=== PATIENT | female | born 1950 | race Caucasian/White ===

== ENCOUNTER → 2017-03-25 | Outpatient (CLI) | payer MEDICARE, BC ==
[~2017-03-25] MED LIST: ACETAMINOPHEN PO; ALLEGRA D PO; ALLEGRA-D1 TAB.SR1 PO; ASACOL400 MG PO; ASTELIN137 MCG INH; ATARAX PO; CALTRATE 600+D PO; CARAFATE1 GM PO; CELEBREX PO; CLARINEX-D1 TAB.SR . PO; COLAZAL750 MG PO; COUMADIN6 MG PO; FOLIC ACID PO; FOLIC ACID1 MG PO; HYDROCODON-ACE1 EAC7 PO; INFLECTRA100 MG IV; KCL PO; MAXZIDE 75/50 T1 TAB PO; MEDROL PO; MEGA BIOTIN10000 MCG PO; METHOTREXATE2.5 MG PO; MICRO-K PO; MULTI-VITAMIN1 TAB PO; MULTIVITAMIN1 UDCAP PO; NEXIUM PO; NORVASC PO; PANTOPRAZOLE SO40 MG PO; PRAVACHOL PO; PRAVASTATIN SOD40 MG PO; PREVACID PO; REGLAN PO; REMICADE INJ; REMICADE IV; SINGULAIR PO; VIT E PO; VITAMIN C PO; VITAMIN D 4001 UDTAB PO; VITAMIN D1000 UNI2 PO; ZEGERID PO; ZEGERID40 MG/PKT PO; ZEGRID PO; ZESTRIL40 MG PO; ZETIA PO; ZOLOFT PO; ZOLOFT100 MG PO; [UNRECOGNIZED DRUG - OTHER] PO; [UNRECOGNIZED DRUG - OTHER] PO; [UNRECOGNIZED DRUG - REMARK]
--- NOTE | ~2017-03-25 | CT4 ---
[facility] A Service of [facility] RADIOLOGY TEXT RESULTS PATIENT: GERRI FRIAS LOCATION: [facility] : 46 UNIT #: [id number] AGE: [address]: Amaury Chery MD SEX: F ORDER DR: [id number] [facility] [address] [place], [place] [address] [id number] O MR#: [id number] [facility] #: [id number] NAME: GERRI FRIAS : 1950 SEX: F STUDY DATE/TIME: 03/25/2017 7:53 UNIT: [facility] ROOM: STUDY DESCRIPTION: CT Abd and Pelv Wo Cont Attending Physician: Amaury Chery M.D. Referring Physician: Amaury Chery M.D. Ordering Physician: Amaury Chery M.D. Primary Care Physician: Amaury Chery M.D. MEDICAL IMAGING REPORT This report is preliminary unless electronic signature is present EXAM CT abdomen and pelvis without contrast, 03/23/2017. HISTORY 67-year-old female with mid abdominal pain, nausea, and vomiting for 2 weeks. Previous cholecystectomy, hiatal hernia. COMPARISON No previous CT abdomen and pelvis at this institution for comparison. PROCEDURE 5-mm noncontrast axial images from the lung bases through the lesser trochanters. Enteric contrast was not administered. Sagittal and coronal reformatted images were obtained. FINDINGS ABDOMEN FINDINGS: Emphysematous changes are present in the included lung bases. There is a small esophageal hiatal hernia. Cholecystectomy changes are present. Noncontrast appearance of the liver, pancreas, adrenals and kidneys is within normal limits. The spleen is markedly atrophic. Limited evaluation of bowel due to lack of enteric contrast, but no focal bowel inflammation is appreciated. The appendix is not discretely visualized, but no pericecal inflammation is seen. No pathologically enlarged lymph nodes. No ascites. [id number] calcific atherosclerosis within a nonaneurysmal abdominal aorta. PELVIS FINDINGS: Calcified uterine fibroids. Urinary bladder is decompressed. Rectum is normal. No pelvic adenopathy or free fluid. Multilevel degenerative disc and endplate changes and facet arthropathy in the lumbar spine with thoracolumbar junction dextroscoliosis, lower lumbar levoscoliosis. No acute osseous abnormalities are identified. [facility] A Service of [facility] RADIOLOGY TEXT RESULTS PATIENT: GERRI FRIAS LOCATION: [facility] : 48 UNIT #: [id number] AGE: [address]: Amaury Chery MD SEX: F ORDER DR: IMPRESSION 1. No acute abnormalities are seen within the abdomen or pelvis to explain the patient's abdominal pain. The appendix is not visualized, but no pericecal inflammation is evident. 2. Splenic atrophy. 3. Cholecystectomy. 4. Small esophageal hiatal hernia. 5. Cholecystectomy. 6. Calcified uterine fibroids. 7. Degenerative changes of the lower lumbar spine with the right lumbar scoliosis. Dictated by... Elda Majano M.D. THIS IS AN ELECTRONICALLY VERIFIED REPORT Elda Majano M.D. at 03/26/2017 8:32 AM ALIRIO/dioni TD: 03/25/2017 13:36 JOB #: [id number] MEDICAL IMAGING REPORT Page 1 of 1 COPY
== END | disposition home or self-care (01) ==
LOC: CCAT 07:14
DX: R13.10 Dysphagia, unspecified (principal); R11.2 Nausea with vomiting, unspecified; D73.0 Hyposplenism; Z90.49 Acquired absence of other specified parts of digestive tract; K44.9 Diaphragmatic hernia without obstruction or gangrene; D25.9 Leiomyoma of uterus, unspecified; M47.896 Other spondylosis, lumbar region; M41.9 Scoliosis, unspecified
CPT/HCPCS: 74176

== ENCOUNTER → 2017-04-05 | Day surgery (SDC) | payer MEDICARE, BC ==
--- NOTE | ~2017-04-05 | OR ---
Unit #: [id number] #: [id number] Patient: GERRI FRIAS [id number] [address] [address] [id number] O MR#: [id number] NAME: GERRI FRIAS ROOM: Date of Procedure: 04/05/2017 Admission Date: 04/05/2017 Surgeon: Linus Trevizo M.D. : 1950 Attending Physician: Linus Trevizo M.D. Primary Care Physician: Amaury Chery M.D. OPERATIVE REPORT PREOPERATIVE DIAGNOSES 1. Dysphagia. 2. Epigastric pain. POSTOPERATIVE DIAGNOSES 1. Diffuse gastritis. 2. Multiple gastric polyps, benign-appearing. PROCEDURES PERFORMED 1. Esophagogastroduodenoscopy with biopsy for Helicobacter pylori. 2. Excisional biopsy of gastric polyp. ANESTHESIA IV sedation. COMPLICATIONS None. INDICATIONS FOR PROCEDURE The patient is a 67-year-old, who is status post Akosua fundoplication in the distant past, who has persistent dysphagia now. She presents for EGD evaluation. DESCRIPTION OF PROCEDURE The patient was taken to the operating theater and placed in the left lateral decubitus position. IV sedation was initiated. EGD scope was passed under direct vision into the esophagus. Esophagus was grossly normal. There may have been a large gastric pouch above the Akosua wrap. There was no active inflammation. This appeared to be widely patent. The scope passed easily. There were multiple gastric polyps. These appeared to be a benign. A biopsy was taken and I excised one polyp. There was streaking gastritis mainly at the antrum. A biopsy was taken for H pylori. The duodenum was normal. I retroflexed the scope and saw intact wrap. ASSESSMENT AND PLAN We will plan for barium swallow. We will follow up on biopsy results. We will continue on her antacids. Dictated by... Linus Trevizo M.D. Unit #: [id number] #: [id number] Patient: GERRI FIRAS JNO/modl TD: 04/05/2017 18:08 JOB #: [id number] OPERATIVE REPORT Page 1 of 1 X Linus Trevizo MD PROCEDURE OPERATIVE NOTE
== END | disposition home or self-care (01) ==
LOC: COPS 13:08
DX: K29.50 Unspecified chronic gastritis without bleeding (principal); K31.7 Polyp of stomach and duodenum; K21.9 Gastro-esophageal reflux disease without esophagitis; E78.5 Hyperlipidemia, unspecified; M06.9 Rheumatoid arthritis, unspecified; E78.00 Pure hypercholesterolemia, unspecified; Z87.891 Personal history of nicotine dependence; Z79.899 Other long term (current) drug therapy; Z90.49 Acquired absence of other specified parts of digestive tract; Z96.651 Presence of right artificial knee joint; Z98.890 Other specified postprocedural states
CPT/HCPCS: 87077; 88305; 88312

== ENCOUNTER → 2017-04-12 | Outpatient (CLI) | payer MEDICARE, BC ==
--- NOTE | ~2017-04-12 | CR290 ---
[facility] A Service of [facility] RADIOLOGY TEXT RESULTS PATIENT: GERRI FRIAS LOCATION: [facility] : 48 UNIT #: [id number] AGE: [address]: Linus Trevizo MD SEX: F ORDER DR: [id number] [facility] [address] [place], [place] [address] [id number] O MR#: [id number] Acc #: [id number] NAME: GERRI FRIAS : 1950 SEX: F STUDY DATE/TIME: 04/12/2017 11:50 UNIT: [facility] ROOM: STUDY DESCRIPTION: CR UGI W Esophagus WO KUB Attending Physician: Linus Trevizo M.D. Referring Physician: Linus Trevizo M.D. Ordering Physician: Linus Trevizo M.D. Primary Care Physician: Amaury Chery M.D. MEDICAL IMAGING REPORT This report is preliminary unless electronic signature is present EXAM Upper GI series. INDICATIONS Pain and vomiting after meals for over 1 month. The fluoroscopy time is 2.4 minutes and 11 fluoroscopic images were taken. FINDINGS Evaluation of the esophagus demonstrated that it was patulous with multiple tertiary contractions. There appeared to be a hypertrophic lower esophageal sphincter. Evaluation of the stomach shows normal folds. The duodenal sweep and the duodenal bulb are unremarkable. There is no evidence for hiatal hernia and there is no evidence for reflux. IMPRESSION 1. Somewhat patulous esophagus with multiple tertiary contractions. 2. There appeared to be a hypertrophied lower esophageal sphincter but contrast did flow easily through the esophagus and into the stomach without evidence of hiatal hernia or reflux. 3. The stomach and the duodenal sweep are unremarkable. Dictated by... Raghavendra Ward M.D. THIS IS AN ELECTRONICALLY VERIFIED REPORT Raghavenrda Ward M.D. at 04/14/2017 7:44 AM ARS/bd TD: 04/13/2017 08:33 JOB #: [id number] [facility] A Service of [facility] RADIOLOGY TEXT RESULTS PATIENT: GERRI FRIAS LOCATION: [facility] #: [id number] : 46 UNIT #: [id number] AGE: [address]: Linus Trevizo MD SEX: F ORDER DR: MEDICAL IMAGING REPORT Page 1 of 1 COPY
== END | disposition home or self-care (01) ==
LOC: CRAD 09:00
DX: R13.10 Dysphagia, unspecified (principal)
CPT/HCPCS: 74240